=== PATIENT | female | born 1980 | race Caucasian/White ===

== ENCOUNTER 2018-11-16 22:21 | Emergency (ER) | payer MEDICAID ==
[~2018-11-16] VITALS: Ht 154.9 cm; Wt 59.5 kg
[~2018-11-16 22:21] MED LIST: PREN1TAB62 PO
[2018-11-16 22:33] VITALS: Ht 154.9 cm; Wt 59.5 kg
--- NOTE | 2018-11-17 02:09 | ERD ---
ER Documentation Chief Complaint Chief Complaint sore throat x 4 days, redness both eyes HPI 38-year-old female, previously healthy, presents to the emergency department, complaining of 4 days with sore throat, associated with headache, fever and general malaise. The patient denies runny nose, no cough, no nausea or vomiting, no rashes. ROS All systems reviewed and are negative except as per history of present illness. Medications Home Meds Active Scripts Erythromycin Base (Erythromycin) 1 Gm Oint...g., 1 APPLIC BOTH EYES QID for 7 Days Prov:MIRI GARCIA MD 11/17/18 Azithromycin* (Zithromax*) 250 Mg Tablet, 250 MG PO .ZPACK DIRECTED, #6 TAB TAKE 500 MG (2 TABS) THE FIRST DAY THEN 250 MG (1 TAB) DAYS 2-5 Prov:MIRI GARCIA MD 11/17/18 Reported Medications Vit-Iron Fumarate-FA ( Vitamin Tablet) 1 Each Tablet, 1 TAB PO DAILY, TAB 06/18/15 Allergies Allergies: Coded Allergies: No Known Drug Allergies (Unverified Allergy, Unknown, 06/18/15) PMhx/Soc Medical and Surgical Hx: pt denies Medical Hx, pt denies Surgical Hx Hx Alcohol Use: No Hx Substance Use: No Hx Tobacco Use: No Smoking Status: Never smoker FmHx Family History: No diabetes, No coronary disease Physical Exam Vitals Vital Signs Date Temp Pulse Resp B/P (MAP) Pulse Ox O2 O2 Flow FiO2 Time Delivery Rate 11/16/18 98.0 73 18 109/56 98 22:33 (73) Physical Exam Patient is in moderate distress due to fever, vital signs showed fever. EYES: PERRLA, EOMI, injected sclerae EARS: Canals clear, erythematous tympanic membranes THROAT: Erythematous oropharynx with bilateral exudates NECK: Supple, + tender cervical lymphadenopathy. Full ROM without pain or tenderness. HEART: RRR, no rubs, murmurs, clicks or gallops. LUNGS: Bilateral rhonchi to auscultation. ABDOMEN: Soft, non-tender without masses or hepatosplenomegaly. EXTREMITIES: No edema bilaterally. BACK: Full ROM, no deformity, normal back exam NEURO: Cranial nerves grossly intact, no motor or sensory deficit Procedures/MDM Differential diagnosis include but not limited to: Tonsillar/pharyngeal infection bacterial/viral/fungal, parotitis, allergies, GERD. Less likely peritonsillar abscess, retropharyngeal abscess. No signs of upper respiratory obstruction Physical examination and clinical presentation consistent most likely with acute suppurative tonsillitis. Centor criteria 4/5. During the ED course the patient remained stable. Clinical impression discussed with the patient who agrees with management. The patient is stable to be treated outpatient and will be discharged home with a Rx for antibiotics. Some side effects of prescribed medications (headache, rash, nausea, vomiting, diarrhea, drowsiness, habituation, bleeding, hypertension, interactions with other medications) were reviewed. The patient was instructed to follow up with the primary care provider in the next 48h. If symptoms persist, worsen or new symptoms develop, then patient should return to the ED immediately. Disclaimer: Inadvertent spelling and grammatical errors are likely due to EHR/dictation software use and do not reflect on the overall quality of patient care. Also, please note that the electronic time recorded on this note does not necessarily reflect the actual time of the patient encounter. Departure Diagnosis: Primary Impression: Acute suppurative tonsillitis Additional Impression: Conjunctivitis Condition: Stable Additional Instructions: Muchas olesya por [facility] para patel servicio. Esperamos que en patel visita a la aaron de emergencia patel problema medico haya sido solucionado y que se sienta mucho mejor. Para estar seguros que patel mejoria sigue en proceso, le pedimos el favor de hacer sera ko de seguimiento medico con patel doctor primario en los proximos 2-4 ralph. Lleve con usted estos documentos y las medicinas recetadas. Si marlene sintomas empeoran, NO SE ESPERE, por favor regrese a aaron de emergencia INMEDIATAMENTE. En brenda que usted no tenga un mdico de atencin primaria: Llame al mdico o clnica comunitaria de referencia que aparece abajo milan las horas de consultorio para hacer sera ko para que le vean. CLINICAS: [facility] [phone] [facility] [phone] [facility] [phone] [facility] [phone] [facility] [phone] [facility] [phone] MIRI KESSLER MD November 17, 2018 02:09
[2018-11-17] MEDS ORDERED: AZIT250T PO (02:36)
[2018-11-17] MEDS ORDERED: ERYT1OIN6 BOTH EYES (02:36)
[2018-11-17 02:56] VITALS: BP 112/56; PULSE 75; RESP 12
== END 2018-11-17 02:56 | disposition home or self-care (01) ==
LOC: FTE 22:21
DX: J03.90 Acute tonsillitis, unspecified (principal); H10.9 Unspecified conjunctivitis
CPT/HCPCS: 99283